=== PATIENT | male | born 1985 | race African-American/Black ===

== ENCOUNTER 2022-12-10 08:28 | Emergency (ER) | payer SELFPAY ==
[2022-12-10] MEDS ORDERED: Ketorolac 30 MG/ML SDV IM ONE (08:59)
== END 2022-12-10 09:58 | disposition home or self-care (01) ==
LOC: FB.ED 08:28
DX: S20.212A Contusion of left front wall of thorax, initial encounter (principal); F17.210 Nicotine dependence, cigarettes, uncomplicated; W18.30XA Fall on same level, unspecified, initial encounter
CPT/HCPCS: 71046; 96372; 99284; J1885

== ENCOUNTER 2022-12-18 02:42 | Emergency (ER) | payer SELFPAY ==
[2022-12-18] MEDS ORDERED: traMADol 50 MG Tab PO ONE (02:43)
== END 2022-12-18 03:06 | disposition home or self-care (01) ==
LOC: FB.ED 02:42
DX: S20.212D Contusion of left front wall of thorax, subsequent encounter (principal); W18.09XD Striking against other object with subsequent fall, subsequent encounter
CPT/HCPCS: 99283; A9270-GY